=== PATIENT | female | born 1955 | race Two or more races ===

== ENCOUNTER 2020-10-02 09:00 | Outpatient (CLI) | payer MEDICARE | END 2020-10-02 23:59 | disposition home or self-care (01) | LOC: LAB 09:00 | PROVIDERS: ATTEND Specialist | DX: Z01.812 Encounter for preprocedural laboratory examination (principal); Z20.822 Contact with and (suspected) exposure to COVID-19 | CPT/HCPCS: C9803; U0003 ==

== ENCOUNTER 2020-10-16 09:38 | Outpatient (CLI) | payer MEDICARE | END 2020-10-16 23:59 | disposition home or self-care (01) | LOC: LAB 09:38 | PROVIDERS: ATTEND Specialist | DX: Z01.812 Encounter for preprocedural laboratory examination (principal); Z20.822 Contact with and (suspected) exposure to COVID-19 | CPT/HCPCS: C9803; U0003 ==

== ENCOUNTER 2020-10-19 06:37 | Inpatient (IN) | payer MEDICARE, BC ==
[~2020-10-19] VITALS: Ht 137.2 cm; Wt 61.7 kg
[2020-10-19] MEDS ORDERED: LIDOCAINE 2%-EPI 1:100,000 30 ML VIAL IJ ONE (06:38)
[2020-10-19] MEDS ORDERED: HEMOSTATIC MATRIX 8 ML 1 EACH PAD MC ONE ×2 (06:53→12:25)
[2020-10-19] MEDS ORDERED: BUPIVACAINE 0.5 % PF 150 MG/30 ML VIAL ONE (06:54)
[2020-10-19] MEDS ORDERED: ANESTHESIA TRAY IN PYXIS 1 EA TRAY MC ONE (06:54)
[2020-10-19] MEDS ORDERED: LIDOCAINE HCL/MPF 1% 30 ML VIAL IJ ONE (06:54)
[2020-10-19] MEDS ORDERED: CEFAZOLIN 1 GM ONE (06:54)
[2020-10-19] MEDS ORDERED: BUPIVACAINE MPF 0.5% W/EPI INJ 30 ML VIAL ONE (06:54)
[2020-10-19] MEDS ORDERED: LIDOCAINE MPF 1%-EPI 1:200,000 30 ML VIAL IJ ONE (06:55)
[2020-10-19] MEDS ORDERED: methylPREDNISolone ACETATE 80 MG/ML VIAL ONE (06:55)
[2020-10-19] MEDS ORDERED: BACITRACIN 50000 UNITS/VIAL ONE (06:55)
[2020-10-19] MEDS ORDERED: KETOROLAC TROMETHAMINE INJ 30 MG/ML VIAL ONE (07:00)
[2020-10-19] MEDS ORDERED: ACETAMINOPHEN 325 MG TABLET ONE (07:01)
[2020-10-19] MEDS ORDERED: oxyCODONE HCL SR 10MG TAB.SR.12H PO ONE (07:01)
[2020-10-19] MEDS ORDERED: GABAPENTIN 300 MG CAPSULE ONE (07:01)
[2020-10-19] MEDS ORDERED: CELECOXIB 100 MG CAPSULE ONE (07:01)
[2020-10-19] MEDS ORDERED: METHYLENE BLUE 10 ML VIAL ONE (07:02)
[2020-10-19] MEDS ORDERED: HEPARIN SODIUM, PORCINE 5000 UNITS/1 ML VIAL ONE (07:03)
[2020-10-19] MEDS ORDERED: MIDAZOLAM HCL 2 MG/2ML VIAL ONE (07:40)
[2020-10-19] MEDS ORDERED: FENTANYL PF 250MCG/5ML AMPUL ONE (07:41)
[2020-10-19] MEDS ORDERED: FENTANYL PF 100MCG/2ML AMPUL ONE ×2 (07:41)
[2020-10-19] MEDS ORDERED: HYDROMORPHONE INJ 2 MG/ML DISP.SYRIN ONE (07:42)
[2020-10-19] MEDS ORDERED: ROCURONIUM BROMIDE 50 MG/5 ML ONE (07:43)
[2020-10-19] MEDS ORDERED: FAMOTIDINE/PF INJ 20 MG/2 ML VIAL IV ONE (07:43)
[2020-10-19] MEDS ORDERED: HYDROCODONE/APAP 5/325MG TABLET PO PRN (08:00)
[2020-10-19] MEDS ORDERED: CYCLOBENZAPRINE 10 MG TABLET PO PRN (08:00)
[2020-10-19] MEDS ORDERED: CLONIDINE HCL 0.1 MG TABLET PO PRN (08:00)
[2020-10-19] MEDS ORDERED: MAG HYDROX/AL HYDROX/SIMETH 30 ML UDC PO PRN (08:00)
[2020-10-19] MEDS ORDERED: MAGNESIUM HYDROXIDE 30 ML UDC PO PRN (08:00)
[2020-10-19] MEDS ORDERED: diphenhydrAMINE HCL 25 MG CAPSULE PO PRN (08:00)
[2020-10-19] MEDS ORDERED: MENTHOL/CETYLPYRD (CEPACOL) 1 LOZ LOZENGE PO PRN (08:00)
[2020-10-19] MEDS ORDERED: ONDANSETRON HCL/PF 4 MG/2 ML VIAL IV PRN (08:00)
[2020-10-19] MEDS ORDERED: ACETAMINOPHEN 325 MG TABLET PO PRN (08:30)
[2020-10-19] MEDS ORDERED: POVIDONE-IODINE OINT 28.4 GM TUBE ONE (10:50)
[2020-10-19] MEDS: DOCUSATE SODIUM 100 MG CAPSULE PO SCH (17:00)
--- NOTE | 2020-10-19 17:10 | NUR ---
RN NOTES RECEIVED MRSA SWAB FROM OR NURSE; PLACED IN REFRIGERATOR FOR SPECIMEN PICK-UP.
--- NOTE | 2020-10-19 17:15 | NUR ---
RN ADMITTING NOTE: RECEIVED PT FROM OR NURSE. PT STABLE, A/O X3, AWAKE AND VERBALLY RESPONSIVE. BEDSIDE ENDORSEMENT. NO PAIN NOTED. BREATHING EVEN AND NON-LABORED. VITALS STABLE. NO RESPIRATORY DISTRESS AT THIS TIME. ADMITTING DIAGNOSIS STATUS POST ANTERIOR CERVICAL FUSION OF C5-C6 & POSTERIOR DECOMPRESSION WITH LATERAL MASS SCREW AND FUSION OF C3-C7. HEMOVAC DRAINING SANGUINOUS FLUID. BENITO INTACT. WILL CONTINUE TO MONITOR.
--- NOTE | 2020-10-19 17:16 | NUR ---
RN NOTES POST-OP ORDERS OBTAINED FROM DR. ULLOA; DR. RODRIGUEZ MADE AWARE OF ADMISSION.
[2020-10-19] MEDS: ANCEF 1 GM/50 ML D5W IV SCH (18:09)
[2020-10-19 18:18] VITALS: BP 135/74
--- NOTE | 2020-10-19 18:40 | NUR ---
HYDROELECTRIC SYSTEMS TECHNICIAN CLOSING NOTES: PT IS RESTING IN BED. POST OP. PT STABLE, A/O X3. NO PAIN NOTED. BREATHING EVEN AND NON-LABORED. VITALS STABLE. NO RESPIRATORY DISTRESS AT THIS TIME. HEMOVAC DRAINING SANGUINOUS FLUID. BENITO INTACT. WILL ENDORSE TO ONCOMING DRYWALL FINISHER NURSE.
[2020-10-19] MEDS ORDERED: GABA-532 PO (19:05)
--- NOTE | 2020-10-19 19:21 | NUR ---
RN NOTES REMOVED 45CC OF SANGUINOUS DRAINAGE FROM HEMOVAC.
--- NOTE | 2020-10-19 19:30 | NUR ---
BARREL FILLER NOTES RECEIVED ON BED A/O X3,S/P ANTERIOR CERVICAL FUSION C-5,C-6,DRESSING INTACT,WITH OLD BLOOD NOTED UNDER HER NECK.IVF NS AT 75ML/HR RATE INFUSING WELL,,BENITO CATH IN PLACE DRAINING CLEAR YELLOW URINE OUTPUT.DVT PUMP IN USED FOR DVT PROPHYLAXIS.PAIN TOLERABLE AT THE MOMENT.CALL LIGHT IN REACH,NEEDS ANTICIPATED.
[2020-10-19 20:00] VITALS: BP 118/69
[2020-10-19] MEDS: oxyCODONE IR immediate release 5 MG PO PRN (21:11)
--- NOTE | 2020-10-19 21:11 | NUR ---
WALLPAPER EMBOSSER HELPER NOTES PAIN MANAGEMENT C/O BACK PAIN 4/10 ON PAIN SCALE,MEDICATED WITH OXY IR 5MG PO ORDERED FOR MODERATE PAIN.
[2020-10-19] MEDS: FAMOTIDINE (20 MG) 20 MG TABLET PO SCH (21:12)
[2020-10-20] VITALS (8 sets, daily range): BP systolic 103–118; BP diastolic 53–74
[2020-10-20] MEDS: ANCEF 1 GM/50 ML D5W IV SCH (01:50)
[2020-10-20 06:42] LABS: BASOPHILS % (AUTO) 0.4 % (0.0-2.0); EOSINOPHILS % (AUTO) 0.1 % (0.0-6.0); HEMATOCRIT 30 % (33-45); LYMPHOCYTES # (AUTO) 0.6 /CMM (0.8-4.8); LYMPHOCYTES % (AUTO) 5.5 % (20.0-44.0); MEAN CORPUSCULAR HGB CONC 34 g/dl (31.0-36.0); MEAN CORPUSCULAR VOLUME 85 fL (82-100); MONOCYTES # (AUTO) 0.4 /CMM (0.1-1.30); MONOCYTES % (AUTO) 3.8 % (2.0-12.0); NEUTROPHILS # (AUTO) 9.3 /CMM (1.8-8.9); NEUTROPHILS % (AUTO) 90.2 % (43.0-81.0); PLATELET COUNT (AUTO) 170 /CMM (150-450); WHITE BLOOD COUNT (AUTO) 10.3 K/uL (4.3-11.0)
[2020-10-20 06:54] LABS: CALCIUM, SERUM 8.2 mg/dL (8.5-10.1); CREATININE 0.9 mg/dL (0.6-1.3); POTASSIUM 4.5 mmol/L (3.5-5.1)
--- NOTE | 2020-10-20 06:54 | NUR ---
MS RN NOTES SLEEP WITH INTERVALS,PAIN TOLERABLE,NO BLEEDING ON NECK AND MID BACK,BENITO DRAINS WELL.HEMOVAC WITH 50ML OUTPUT.CALL LIGHT IN REACH,NEEDS ATTENDED.
--- NOTE | 2020-10-20 08:02 | NUR ---
MS RN OPENING NOTES: RECEIVED PT LYING IN BED, AWAKE, A/O X3. DRESSING INTACT. IV INTACT, FLUSHES WELL. BENITO CATH IN PLACE DRAINING CLEAR YELLOW URINE OUTPUT. DVT PUMPS ON BILATERALLY. NO PAIN NOTED. CALL LIGHT IN REACH. WILL CONTINUE TO MONITOR.
[2020-10-20] MEDS: FAMOTIDINE (20 MG) 20 MG TABLET PO SCH ×2 (08:42→20:49)
[2020-10-20] MEDS: DOCUSATE SODIUM 100 MG CAPSULE PO SCH ×2 (08:42→16:14)
[2020-10-20] MEDS: oxyCODONE IR immediate release 5 MG PO PRN ×2 (08:51→11:41)
--- NOTE | 2020-10-20 10:20 | NUR ---
RN NOTES RECEIVED CALL FROM DR. ULLOA W/ ORDER FOR CERVICAL COLLAR FOR PATIENT; CENTRAL SUPPLY MADE AWARE AND PROVIDED C-COLLAR.
--- NOTE | 2020-10-20 11:26 | NUR ---
RN NOTES RECEIVED CALL FROM DR. WAKEFIELD AND UPDATED ABOUT PATIENT'S CURRENT PAIN STATUS AND MEDICATION REGIMEN. INFORMED MD THAT HIGHEST PAIN RATED BY PATIENT AT THIS TIME IS AT 6, LOCALIZED AT THE NECK/BACK AREA, AND THAT PATIENT IS ABLE TO REQUEST FOR PAIN MEDICATION WHEN SHE WANTS/NEEDS AND ALSO ABLE TO TOLERATE PAIN IN SPITE OF OFFERS OF PAIN MEDICATION. WILL CONTINUE TO MONITOR.
--- NOTE | 2020-10-20 12:05 | NUR ---
RN NOTES PATIENT WAS SEEN BY DR. WAKEFIELD W/ VLAD TO D/C BENITO CATH TOMORROW IN AM; STATED THAT HEMOVAC DRAIN WILL BE REMOVED TOMORROW MORNING AND REQUESTED DRAIN REMOVAL SUPPLIES TO BE AVAILABLE AT BEDSIDE.
[2020-10-20] MEDS ORDERED: MENTHOL/CETYLPYRD (CEPACOL) 1 LOZ LOZENGE PO ONE (12:10)
--- NOTE | 2020-10-20 12:50 | NUR ---
RN NOTE PHYSICAL THERAPIST DOMINIC APPLIED CERVICAL COLLAR. PT TOLERATING WELL.
[2020-10-20] MEDS: HYDROMORPHONE 1 MG/1 ML DISP.SYRIN IM/IV/SC PRN (18:25)
--- NOTE | 2020-10-20 18:45 | NUR ---
MS RN CLOSING NOTES: PT IS LYING IN BED, AWAKE. WATCHING TV. A/O X3. 9/10 PAIN NOTED. DILAUDID 0.5MG GIVEN @ 1825. BREATHING EVEN AND NON-LABORED. NO RESPIRATORY DISTRESS AT THIS TIME. HEMOVAC DRAINING SEROSANGUINOUS FLUID - 55CC OUTPUT THIS SHIFT. BENITO INTACT - 350CC OUTPUT - TO BE REMOVED @ 0600. WILL ENDORSE TO ONCOMING TAPING FOREMAN NURSE.
--- NOTE | 2020-10-20 20:00 | NUR ---
RN NOTES RECEIVED PATIENT IN BED, ALERT AND ORIENTED X3, 2LPM VIA NC, COMPLAINING OF PAIN TO BACK AND FRONT OF NECK, SURGICAL SITE ON ANTERIOR NECK, CLEAN DRY AND INTACT, PER REPORT, PATIENT UNABLE TO TOLERATE ASPEN COLLAR, BENITO CATHETER DRAINING WELL, WILL CONTINUE TO MONITOR
[2020-10-21] MEDS: oxyCODONE IR immediate release 5 MG PO PRN ×2 (00:09→20:40)
[2020-10-21] MEDS: HYDROMORPHONE 1 MG/1 ML DISP.SYRIN IM/IV/SC PRN ×2 (01:26→06:38)
[2020-10-21 02:18] VITALS: BP 116/67
--- NOTE | 2020-10-21 07:00 | NUR ---
RN NOTES ALERT AND ORIENTED X4, 2LPM VIA NC, PAIN MANAGED BY DILAUDID, BENITO CATHETER DISCONTINUED AT 0600. DR. WAKEFIELD REMOVED HEMOVAC TO BACK OF NECK, MEPILEX DRESSING, NO BLEEDING. PER PLAN OF CARE, AMBULATE BEFORE DC.
[2020-10-21 07:02] LABS: BASOPHILS # (AUTO) 0.1 /CMM (0.0-0.2); BASOPHILS % (AUTO) 0.5 % (0.0-2.0); EOSINOPHILS % (AUTO) 0.1 % (0.0-6.0); HEMATOCRIT 33 % (33-45); HEMOGLOBIN 11.3 g/dL (11.5-14.8); LYMPHOCYTES # (AUTO) 0.5 /CMM (0.8-4.8); LYMPHOCYTES % (AUTO) 5.2 % (20.0-44.0); MEAN CORPUSCULAR HGB CONC 34 g/dl (31.0-36.0); MEAN CORPUSCULAR VOLUME 83 fL (82-100); MONOCYTES # (AUTO) 0.6 /CMM (0.1-1.30); MONOCYTES % (AUTO) 6.4 % (2.0-12.0); NEUTROPHILS # (AUTO) 8.7 /CMM (1.8-8.9); NEUTROPHILS % (AUTO) 87.8 % (43.0-81.0); PLATELET COUNT (AUTO) 166 /CMM (150-450); RED BLOOD CELL COUNT(AUTO) 3.96 MIL/uL (4.0-5.2); WHITE BLOOD COUNT (AUTO) 9.9 K/uL (4.3-11.0)
[2020-10-21 07:16] LABS: CALCIUM, SERUM 8.8 mg/dL (8.5-10.1); CREATININE 0.6 mg/dL (0.6-1.3); POTASSIUM 4.1 mmol/L (3.5-5.1)
[2020-10-21 08:00] VITALS: BP 112/64
--- NOTE | 2020-10-21 08:00 | NUR ---
RN Opening note Received patient in bed. AO x 4, [place] speaking. Skin is warm to touch, keep clean/dry, intact IV site. Respiratory even and unlabored on room air. Kept elevated HOB for ensure airway and aspiration precaution and lowering bed position for safety. Encouraged patient to keep brace on neck. Call light within reach, will continue to monitor.
--- NOTE | 2020-10-21 09:20 | NUR ---
Received phone call from Orthopedic PA/Anamika clarified when patient stable okay to d/c rehab. Addendum: 10/21/20 at 1321 by ALEX SANDERS RN Error
--- NOTE | 2020-10-21 09:20 | NUR ---
Received phone call from Orthopedic PA/Teresa clarified okay to d/c rehab when patient stable.
[2020-10-21] MEDS: DOCUSATE SODIUM 100 MG CAPSULE PO SCH ×2 (09:34→16:35)
[2020-10-21] MEDS: FAMOTIDINE (20 MG) 20 MG TABLET PO SCH ×2 (09:34→20:40)
--- NOTE | 2020-10-21 13:19 | NUR ---
Patient refuse brace on Neck during in bed, informed PA/Teresa regarding above.
[2020-10-21 16:00] VITALS: BP 137/71
--- NOTE | 2020-10-21 18:48 | NUR ---
RN Closing note Patient in bed, remains A O x 4. Respiratory even and unlabo on room air, no SOB or distress observed. Skin is warm to touch, keep clean/dry, also remains clean/dry s/p sx on anterior, posterior neck. Keep elevated HOB for ensure airway and aspiration precaution, also lowest bed position for safety. Encouraged patient to oral fluid intake as tolerated. Call light within reach, will endorse to copper etcher.
[2020-10-21 20:00] VITALS: BP 135/87
--- NOTE | 2020-10-21 21:13 | NUR ---
MS/TELE/RN DURING INITIAL SHIFT ROUNDING, PATIENT WAS IN BED AWAKE, ALERT, ORIENTED, COMFORTABLE, NO SIGNS OF DISTRESS NOTE, ASPEN NECK COLLAR IN PLACE. FALL PRECAUTIONS PER PROTOCOL, WILL MONITOR.
[2020-10-22] MEDS: oxyCODONE IR immediate release 5 MG PO PRN ×2 (04:08→08:30)
--- NOTE | 2020-10-22 06:50 | NUR ---
MS/TELE/RN PATIENT IS AWAKE AT THIS TIME, COMFORTABLE, NO DISTRESS NOTED, CALL LIGHT IN REACH, ALL NEEDS ATTENDED AT THIS TIME, WILL CONTINUE TO MONITOR.
[2020-10-22 07:11] LABS: CREATININE 0.6 mg/dL (0.6-1.3); POTASSIUM 3.9 mmol/L (3.5-5.1)
--- NOTE | 2020-10-22 07:49 | NUR ---
MS/RN OPENING NOTES RECEIVED PATIENT WAS IN BED AWAKE, ALERT, ORIENTED, COMFORTABLE, NO SIGNS OF DISTRESS NOTE, ASPEN NECK COLLAR IN PLACE. FALL PRECAUTIONS PER PROTOCOL, WILL CONTINUE TO MONITOR.
[2020-10-22 08:00] VITALS: BP 120/69
[2020-10-22] MEDS: DOCUSATE SODIUM 100 MG CAPSULE PO SCH (08:30)
[2020-10-22] MEDS: FAMOTIDINE (20 MG) 20 MG TABLET PO SCH (08:30)
--- NOTE | 2020-10-22 09:00 | NUR ---
MS/RN NOTES WEAN 2 L OXYGEN TO ROOM AIR PATIENT SATURATION 94%. PATIENT IN NO APPARENT RESPIRATORY DISTRESS NOTED. WILL CONTINUE TO MONITOR.
[2020-10-22] MEDS ORDERED: PANT40TA2 PO (09:03)
[2020-10-22] MEDS ORDERED: OXYC-128 PO (09:03)
[2020-10-22] MEDS ORDERED: DOCU-141 PO (09:03)
[2020-10-22] MEDS: HYDROMORPHONE 1 MG/1 ML DISP.SYRIN IM/IV/SC PRN (10:03)
--- NOTE | 2020-10-22 11:11 | NUR ---
RN NOTES PATIENT IS ALERT AND ORIENTED X3. PATIENT IN ROOM AIR SATURATION 94%.PATIENT IN NO APPARENT RESPIRATORY DISTRESS NOTED. NO COMPLAINED OF PAIN NOTED AT THIS TIME. SEEN AND EXAMINED BY MD WITH ORDERS MADE AND CARRIED OUT. ALL DUE MEDICATIONS WAS GIVEN. PHYSICAL THERAPY EVALUATION DONE BY DOMINIC AND ORDER WALKER FOR HOME. DISCHARGED INSTRUCTIONS WAS GIVEN TO SAM NAVAS AND VERBALIZED UNDERSTANDING. PATIENT LEFT THE HOSPITAL IN MEDICALLY STABLE CONDITION CO FOUNDER & CEO BY SAM DAUGHTER VIA PRIVATE CAR. WALKER WAS GIVEN TO PATIENT.
== END 2020-10-22 11:00 | disposition home health service (06) | DRG 454 ==
LOC: DS 06:37 → MED 14:24
PROVIDERS: ADMIT Nurse Practitioner Acute Care; ATTEND Nurse Practitioner Acute Care
PROC: 0RG1070 Fusion of Cervical Vertebral Joint with Autologous Tissue Substitute, Anterior Approach, Anterior Column, Open Approach (ICD-10-PCS; principal; 2020-10-19)
PROC: 0RG2071 Fusion of 2 or more Cervical Vertebral Joints with Autologous Tissue Substitute, Posterior Approach, Posterior Column, Open Approach (ICD-10-PCS; 2020-10-19)
PROC: 0RB30ZZ Excision of Cervical Vertebral Disc, Open Approach (ICD-10-PCS; 2020-10-19)
DX: M48.02 Spinal stenosis, cervical region (principal); E87.1 Hypo-osmolality and hyponatremia; M54.12 Radiculopathy, cervical region; E78.00 Pure hypercholesterolemia, unspecified; Z98.1 Arthrodesis status; D63.8 Anemia in other chronic diseases classified elsewhere; E66.9 Obesity, unspecified; Z68.32 Body mass index [BMI] 32.0-32.9, adult
CPT/HCPCS: 36415; 72040-TC; 80048-TC; 85025-TC; 86850-TC; 87081-TC; 97116-TC; 97530-TC; A6209; A6253; A6403; C1713; C1889; C9803; G0378; J0330; J0690; J1040; J1100; J1170; J1644; J1885; J2250; J2405; J2704; J2765; J3010; J3490; J7060; L3908; Q0163; Q9968; U0003